=== PATIENT | female | born 1970 | race Caucasian/White ===

== ENCOUNTER 2023-05-14 01:03 | Inpatient (IN) | payer MEDICAID ==
[~2023-05-14] VITALS: Ht 175.3 cm; Wt 92.5 kg
[2023-05-14 01:22] LABS: BASOPHILS % 0.2 % (0.0-2.0); EOSINOPHILS % 0.6 % (0.0-5.0); HEMATOCRIT. 41.3 % (36.0-48.0); HEMOGLOBIN. 14.1 g/dL (12.0-16.0); LYMPHOCYTES % 21.7 % (20.0-50.0); MEAN CORPUSCULAR HEMOGLOBIN 31.9 pg (28.0-32.0); MEAN CORPUSCULAR HGB CONC 34.1 g/dL (31.0-37.0); MEAN CORPUSCULAR VOLUME 93.6 fL (81.0-99.0); MONOCYTES % 7.4 % (2.0-8.0); NEUTROPHILS % 70.1 % (40.0-76.0); PLATELET 276 x1000/uL (130-400); RED BLOOD CELL COUNT 4.42 mill/uL (4.2-5.4); RED CELL DISTRIBUTION WIDTH 13.5 % (11.6-14.6); WHITE BLOOD COUNT 10.5 x1000/uL (4.5-11.0)
[2023-05-14 01:39] LABS: ALANINE AMINOTRANSFERASE 43 IU/L (10-49); ALBUMIN 4.8 g/dL (3.2-4.8); ASPARTATE AMINOTRANSFERASE 143 IU/L (<34); BILIRUBIN TOTAL 0.5 mg/dL (0.1-1.0); CALCIUM 9.1 mg/dL (8.7-10.4); CARBON DIOXIDE 25 mEq/L (21-32); CHLORIDE 108 mEq/L (98-107); CREATININE 1.2 mg/dL (0.6-1.0); GLUCOSE 131 mg/dL (70-105); POTASSIUM 3.6 mEq/L (3.5-5.1); PROTEIN TOTAL 8.5 g/dL (6.0-8.3); SODIUM 141 mEq/L (136-145); UREA NITROGEN BLOOD 18 mg/dL (9-23)
[2023-05-14 01:44] LABS: TROPONIN I HIGH SENSITIVITY < 4 ng/L (3.0-34)
[2023-05-14] MEDS: ONDANSETRON HCL 4MG/2ML INJ IV STA (02:57)
[2023-05-14] MEDS: MORPHINE SULFATE 4 MG/ML CPJ (NOT FOR IM USE) IV STA (02:57)
[2023-05-14] MEDS: SODIUM CHLORIDE 0.9% 1,000 ML IV ONE (02:57)
[2023-05-14 03:49] LABS: HCG SCREEN NEGATIVE
[2023-05-14 04:11] LABS: TROPONIN I HIGH SENSITIVITY < 4 ng/L (3.0-34)
[2023-05-14] MEDS: PIPERACILLIN/TAZO 3.375G/50ML 50 ML IV STA (05:41)
[2023-05-14] MEDS ORDERED: GUAIFENESIN 200MG/10ML SUGAR FREE UDC PO PRN (07:30)
[2023-05-14] MEDS ORDERED: IPRATROPIUM/ALBUTEROL 0.5-3(2.5)MG/3ML NEB HHN PRN (07:30)
[2023-05-14] MEDS ORDERED: ACETAMINOPHEN 325MG TABLET PO PRN (07:30)
[2023-05-14] MEDS ORDERED: CLONIDINE 0.1MG TABLET PO PRN (07:30)
[2023-05-14] MEDS ORDERED: DEXT 5%/0.45% NACL 1000ML 1,000 ML IV ONE (07:30)
[2023-05-14] MEDS ORDERED: ONDANSETRON HCL 4MG/2ML INJ IV PRN (07:30)
[2023-05-14 08:00] VITALS: BP 137/89; PULSE 88; RESP 20; TEMP 97.4
[2023-05-14] MEDS ORDERED: MAGNESIUM/ALUMINUM HYDROXIDE/SIMETHICONE 30ML UDC PO PRN (09:00)
[2023-05-14] MEDS: KETOROLAC 15MG/ML VIAL IV PRN (09:18)
[2023-05-14] MEDS: DEXT 5%/LACTATED RINGERS 1,000 ML IV ONE (10:03)
[2023-05-14] MEDS ORDERED: LEVO125T8 MT (11:45)
[2023-05-14] MEDS ORDERED: ATOR20TA65 PO (11:45)
[2023-05-14 12:00] VITALS: BP 106/58; PULSE 61; RESP 22; TEMP 98.1
[2023-05-14 13:14] LABS: D-DIMER 0.8 mg/L FEU (<0.50); PROTHROMBIN TIME 11.4 sec (9.6-11.0)
[2023-05-14] MEDS: PIPERACILLIN/TAZO 3.375G/50ML 50 ML IV SCH (13:40)
[2023-05-14 16:00] VITALS: BP 110/50; PULSE 68; RESP 20; TEMP 97.6
[2023-05-14 20:00] VITALS: BP 95/46; PULSE 63; RESP 18; TEMP 97.9
[2023-05-14] MEDS: FAMOTIDINE 20MG TABLET PO SCH (21:54)
[2023-05-15] VITALS: BP 98/51; PULSE 66; RESP 18; TEMP 96.9
[2023-05-15 04:00] VITALS: BP 94/50; PULSE 67; RESP 18; TEMP 96.9
[2023-05-15 07:37] LABS: BASOPHILS % 0.4 % (0.0-2.0); EOSINOPHILS % 2.1 % (0.0-5.0); HEMATOCRIT. 37.7 % (36.0-48.0); LYMPHOCYTES % 42.8 % (20.0-50.0); MEAN CORPUSCULAR HEMOGLOBIN 31.8 pg (28.0-32.0); MEAN CORPUSCULAR HGB CONC 34.4 g/dL (31.0-37.0); MEAN CORPUSCULAR VOLUME 92.4 fL (81.0-99.0); MEAN PLATELET VOLUME 7.3 fl (7.4-10.4); MONOCYTES % 7.7 % (2.0-8.0); PLATELET 223 x1000/uL (130-400); RED BLOOD CELL COUNT 4.08 mill/uL (4.2-5.4); RED CELL DISTRIBUTION WIDTH 13.7 % (11.6-14.6); WHITE BLOOD COUNT 4.2 x1000/uL (4.5-11.0)
[2023-05-15 08:00] VITALS: BP 118/54; PULSE 61; RESP 18; TEMP 96
[2023-05-15 08:01] LABS: ALANINE AMINOTRANSFERASE 105 IU/L (10-49); ASPARTATE AMINOTRANSFERASE 164 IU/L (<34); BILIRUBIN TOTAL 0.5 mg/dL (0.1-1.0); CALCIUM 8.6 mg/dL (8.7-10.4); CARBON DIOXIDE 25 mEq/L (21-32); CHLORIDE 110 mEq/L (98-107); GLUCOSE 84 mg/dL (70-105); POTASSIUM 3.8 mEq/L (3.5-5.1); SODIUM 141 mEq/L (136-145); THYROID STIMULATING HORMONE 14.21 uIU/mL (0.55-4.78); UREA NITROGEN BLOOD 10 mg/dL (9-23)
[2023-05-15] MEDS ORDERED: DEXT 5%/0.9% NACL 1,000 ML IV ONE (11:15)
[2023-05-15 12:00] VITALS: BP 97/56; PULSE 63; RESP 18; TEMP 96.6
[2023-05-15 16:00] VITALS: BP 113/50; PULSE 70; RESP 19; TEMP 97.7
[2023-05-15 20:00] VITALS: BP 110/48; PULSE 59; RESP 18; TEMP 97.7
[2023-05-16] VITALS: BP 118/52; PULSE 62; TEMP 97.8
[2023-05-16 04:00] VITALS: BP 100/55; PULSE 69; RESP 19; TEMP 97.7
[2023-05-16] MEDS: DOCUSATE SODIUM 100MG CAPSULE PO PRN (04:13)
[2023-05-16 08:00] VITALS: BP 90/51; PULSE 58; RESP 19; TEMP 98.1
[2023-05-16] MEDS ORDERED: POLYETHYLENE GLYCOL 3350 (17GM) 1 DOSE PACK PO NR (08:30)
[2023-05-16] MEDS ORDERED: DOCU100T MT (10:22)
[2023-05-16] MEDS ORDERED: ONDA4TAB50 MT (10:22)
[2023-05-16] MEDS ORDERED: IBUP-2030 MT (10:22)
[2023-05-16 11:48] VITALS: BP 100/51; PULSE 58; TEMP 98.1; O2SAT 96
[2023-05-16 12:00] VITALS: BP 91/42; PULSE 66; RESP 18; TEMP 97.5
== END 2023-05-16 15:09 | disposition home or self-care (01) ==
LOC: ER 01:03 → 7WST 05:37 → EDBEDREQ 05:44 → 6EST 23:28
PROVIDERS: ADMIT Internal Medicine; ATTEND Internal Medicine
DX: K80.00 Calculus of gallbladder with acute cholecystitis without obstruction (principal); N17.9 Acute kidney failure, unspecified; E03.9 Hypothyroidism, unspecified; K76.0 Fatty (change of) liver, not elsewhere classified; R73.9 Hyperglycemia, unspecified; Z79.899 Other long term (current) drug therapy
CPT/HCPCS: 36415; 71045; 74176; 76700; 78227; 80053; 83036; 84439; 84443; 84484; 84703; 85025; 85379; 93005; 93970; 99285; A9537; J1885; J2270; J2405; J2543; J7030